=== PATIENT | female | born 1980 | race African-American/Black ===

== ENCOUNTER 2024-03-25 14:23 | Emergency (ER) | payer MEDICAID ==
[~2024-03-25] VITALS: Ht 162.6 cm; Wt 77.0 kg
[2024-03-25 14:30] VITALS: TEMP 36.8; O2SAT 100
[2024-03-25] MEDS ORDERED: METOCLOPRAMIDE HCL 10MG/2ML VIAL IV ONE (17:45)
[2024-03-25] MEDS ORDERED: KETOROLAC 15MG/ML VIAL IV ONE (18:00)
[2024-03-25 18:46] LABS: BASOPHILS % 0.2 % (0.0-2.0); EOSINOPHILS % 0.2 % (0.0-5.0); HEMATOCRIT. 41.1 % (36.0-48.0); HEMOGLOBIN. 13.5 g/dL (12.0-16.0); LYMPHOCYTES % 13.9 % (20.0-50.0); MEAN CORPUSCULAR HEMOGLOBIN 27.8 pg (28.0-32.0); MEAN CORPUSCULAR HGB CONC 32.8 g/dL (31.0-37.0); MEAN CORPUSCULAR VOLUME 84.8 fL (81.0-99.0); MEAN PLATELET VOLUME 8.1 fl (7.4-10.4); MONOCYTES % 4.9 % (2.0-8.0); NEUTROPHILS % 80.8 % (40.0-76.0); PLATELET 279 x1000/uL (130-400); RED BLOOD CELL COUNT 4.85 mill/uL (4.2-5.4); RED CELL DISTRIBUTION WIDTH 14.2 % (11.6-14.6)
[2024-03-25 19:11] LABS: HCG SCREEN NEGATIVE
[2024-03-25 19:14] LABS: CHLORIDE 110 mEq/L (98-107); POTASSIUM 4.1 mEq/L (3.5-5.1); SODIUM 143 mEq/L (136-145)
[2024-03-25 19:15] LABS: CARBON DIOXIDE 27 mEq/L (21-32)
[2024-03-25 19:16] LABS: CALCIUM 9.7 mg/dL (8.7-10.4)
[2024-03-25 19:20] LABS: CREATININE 0.8 mg/dL (0.6-1.0); GLUCOSE 95 mg/dL (70-105)
[2024-03-25 19:21] LABS: UREA NITROGEN BLOOD 14 mg/dL (9-23)
[2024-03-25 19:22] LABS: ALANINE AMINOTRANSFERASE 19 IU/L (10-49); ALBUMIN 4.4 g/dL (3.2-4.8); ASPARTATE AMINOTRANSFERASE 21 IU/L (<34)
[2024-03-25 19:23] LABS: BILIRUBIN DIRECT 0.2 mg/dL (<=3.0); BILIRUBIN TOTAL 0.7 mg/dL (0.1-1.0); PROTEIN TOTAL 7.4 g/dL (6.0-8.3)
[2024-03-25 20:44] LABS: CLARITY URINE CLOUDY (CLEAR); COLOR URINE DARK YELLOW (YELLOW); GLUCOSE URINE NEGATIVE (NEGATIVE); KETONES URINE 1+ (NEGATIVE); LEUKOCYTE ESTERASE URINE NEGATIVE (NEGATIVE); NITRITE URINE NEGATIVE (NEGATIVE); OCCULT BLOOD URINE NEGATIVE (NEGATIVE); PROTEIN URINE NEGATIVE (NEGATIVE); SPECIFIC GRAVITY URINE 1.032 (1.005-1.030)
[2024-03-25 20:46] VITALS: BP 122/70; PULSE 69; RESP 18
[2024-03-25] MEDS: KETOROLAC 15MG/ML VIAL IV NR (20:46)
[2024-03-25] MEDS: METOCLOPRAMIDE HCL 10MG/2ML VIAL IV NR (20:46)
[2024-03-25 22:01] LABS: BACTERIA URINE TRACE; MUCUS URINE 1+ /lpf (< = 2+); RBC URINE NONE SEEN /hpf (0-2); SQUAMOUS EPITHELIAL CELL URINE 1+ /lpf (RARE/1+)
== END 2024-03-25 21:16 | disposition home or self-care (01) ==
LOC: ER 14:23
DX: G43.909 Migraine, unspecified, not intractable, without status migrainosus (principal); J45.909 Unspecified asthma, uncomplicated
CPT/HCPCS: 99284; 96374; 96375; 80076; 80048; 81003; 84703; 83690; 85025; 36415; J1885; J2765